=== PATIENT | male | born 1985 | race Caucasian/White ===

== ENCOUNTER 2019-08-08 08:40 | Outpatient (CLI) | payer OTHER ==
[2019-08-08] MEDS ORDERED: None per pt (08:58)
== END 2019-08-08 23:59 | disposition home or self-care (01) ==
LOC: STAR 08:40
PROVIDERS: ATTEND Orthopaedic Surgery
DX: Z02.9 Encounter for administrative examinations, unspecified (principal)

== ENCOUNTER 2019-08-16 05:20 | Day surgery (SDC) | payer OTHER ==
[~2019-08-16] VITALS: Ht 165.1 cm; Wt 94.1 kg
[~2019-08-16 05:20] MED LIST: None per pt
[2019-08-16] MEDS ORDERED: LACTATED RINGERS 1,000 ML IV SCH (05:57)
[2019-08-16 05:58] VITALS: BP 148/92
[2019-08-16] MEDS ORDERED: LIDOCAINE 1%-EPI 1:100K, 20ML ONE ×2 (06:13→06:14)
[2019-08-16] MEDS ORDERED: ROPIvacaine/PF 0.5%, 30 ML ONE (06:13)
[2019-08-16] MEDS ORDERED: GABAPENTIN 300 MG CAPSULE ONE (06:26)
[2019-08-16] MEDS ORDERED: DIAZEPAM 5 MG TABLET ONE (06:27)
[2019-08-16] MEDS ORDERED: GABAPENTIN 300 MG CAPSULE PO ONE (06:30)
[2019-08-16] MEDS ORDERED: DIAZEPAM 5 MG TABLET PO ONE (06:30)
[2019-08-16] MEDS ORDERED: FENTANYL PF 250 MCG/5ML ONE (06:33)
[2019-08-16] MEDS ORDERED: MIDAZOLAM 1 MG/ML, 2ML ONE (06:33)
[2019-08-16] MEDS ORDERED: KETAMINE 10 MG/ML, 20ML ONE (06:40)
[2019-08-16] MEDS ORDERED: ACETAMINOPHEN 325 MG TABLET PO PRN (07:30)
[2019-08-16] MEDS ORDERED: MIDAZOLAM 1 MG/ML, 2ML IV PRN (07:30)
[2019-08-16] MEDS ORDERED: OXYcodone 5 MG/5 ML ORAL.SOL UDC PO PRN (07:30)
[2019-08-16] MEDS ORDERED: ALBUTEROL/IPRATROPIUM 2.5MG/0.5MG, 3 ML NPPB PRN (07:30)
[2019-08-16] MEDS ORDERED: PROMETHAZINE 25 MG/ML, 1ML IV PRN (07:30)
[2019-08-16] MEDS ORDERED: hydrALAzine 20 MG/ML, 1ML IV PRN (07:30)
[2019-08-16] MEDS ORDERED: MEPERIDINE/PF 25MG/ML,1ML IVPush PRN (07:30)
[2019-08-16] MEDS ORDERED: METOPROLOL 1 MG/ML, 5ML IV PRN (07:30)
[2019-08-16] MEDS ORDERED: HYDROmorphone 2 MG/ML, 1ML IVPush PRN (07:30)
[2019-08-16] MEDS ORDERED: BUPIVACAINE/PF 0.5% ONE (07:38)
[2019-08-16] MEDS ORDERED: LIDOCAINE-MPF 2% ,5ML ONE (07:38)
[2019-08-16] MEDS ORDERED: CEFAZOLIN 1,000 MG ONE (07:54)
[2019-08-16] MEDS ORDERED: PROPOFOL 10 MG/ML, 20ML ONE (07:54)
[2019-08-16] MEDS ORDERED: KETOROLAC 30 MG/1 ML ONE (07:54)
[2019-08-16] MEDS ORDERED: ONDANSETRON 2MG/ML, 2ML ONE (07:54)
[2019-08-16] MEDS ORDERED: DEXAMETHASONE 4 MG/ML, 1ML ONE (07:54)
[2019-08-16] MEDS ORDERED: FENTANYL PF 100 MCG/2ML ONE (09:18)
[2019-08-16] MEDS ORDERED: ACETAMINOPHEN 650 MG/20.3 ML UDC ONE (09:18)
[2019-08-16] MEDS ORDERED: OXYcodone 5 MG/5 ML ORAL.SOL UDC ONE (09:19)
[2019-08-16] MEDS: FENTANYL PF 100 MCG/2ML IV PRN ×2 (09:25→09:37)
== END 2019-08-16 11:25 | disposition home or self-care (01) ==
LOC: OUT 05:20
PROVIDERS: ATTEND Orthopaedic Surgery
DX: S83.511A Sprain of anterior cruciate ligament of right knee, initial encounter (principal); M22.41 Chondromalacia patellae, right knee; Z88.0 Allergy status to penicillin; Z88.2 Allergy status to sulfonamides; X58.XXXA Exposure to other specified factors, initial encounter; Y93.89 Activity, other specified; Y92.89 Other specified places as the place of occurrence of the external cause; Y99.8 Other external cause status
CPT/HCPCS: 29888; C1713; J0690; J1100; J1885; J2250; J2405; J2704; J2795; J3010; J3490; J7120